=== PATIENT | female | born 1985 | race American Indian/Alaskan Native ===

== ENCOUNTER → 2018-09-04 | Outpatient (CLI) | payer OTHER | END | disposition home or self-care (01) | LOC: LAB SHORT 07:25 → PLD 07:25 | DX: D22.62 Melanocytic nevi of left upper limb, including shoulder (principal) | CPT/HCPCS: 88305 ==

== ENCOUNTER 2021-01-19 08:27 | Emergency (ER) | payer OTHER ==
[~2021-01-19] VITALS: Ht 165.1 cm; Wt 170.1 kg
[2021-01-19] MEDS ORDERED: GABA300 PO (10:05)
[2021-01-19] MEDS ORDERED: IBUP600 PO (10:05)
[2021-01-19] MEDS ORDERED: METPRE4DP PO (10:05)
[2021-01-19] MEDS ORDERED: Robaxin750 MG PO (10:06)
== END 2021-01-19 10:21 | disposition home or self-care (01) ==
LOC: ER 08:27
DX: M48.062 Spinal stenosis, lumbar region with neurogenic claudication (principal); M54.16 Radiculopathy, lumbar region
CPT/HCPCS: 99283; J7509

== ENCOUNTER → 2023-04-23 | Outpatient (CLI) | payer OTHER ==
[~2023-04-23] MED LIST: GABA300 PO; IBUP600 PO; METPRE4DP PO; Robaxin750 MG PO
== END ==
LOC: PLD 13:14 → LAB SHORT 13:14
DX: D48.5 Neoplasm of uncertain behavior of skin (principal)
CPT/HCPCS: 88305